=== PATIENT | female | born 1990 | race Caucasian/White ===

== ENCOUNTER 2018-07-31 14:15 | Emergency (ER) | payer OTHER ==
[~2018-07-31] VITALS: Ht 170.2 cm; Wt 88.5 kg
--- NOTE | 2018-07-31 15:22 | PHYS DOC ---
Past History Past Medical History: Other Past Surgical History: Other Alcohol Use: Occasionally Drug Use: None Adult General Chief Complaint Chief Complaint: Neck Pain HPI HPI Patient is a 28 year old female who presents with complaint of an enlarged lymph node along the left side of her neck. States that this has been present over the past 3 days. States it is mildly tender to palpation. Denies any fever. Has had sore throat but attributes that to mild seasonal allergies. States that she recently had breast screening including mammogram and ultrasound which was negative. This was done in May 2018. Has not taking medications for symptoms. The patient came to have this evaluated due to concern for the sudden enlargement of the lymph node. Review of Systems Review of Systems Constitutional: Denies fever or chills [] Eyes: Denies change in visual acuity, redness, or eye pain [] HENT: Denies nasal congestion or sore throat [] Respiratory: Denies cough or shortness of breath [] Cardiovascular: Denies chest pain or edema[] GI: Denies abdominal pain, nausea, vomiting, bloody stools or diarrhea [] : Denies dysuria or hematuria [] Musculoskeletal: Denies back pain or joint pain [] Integument: Denies rash or skin lesions [] Neurologic: Denies headache, focal weakness or sensory changes [] All other systems were reviewed and found to be within normal limits, except as documented in this note. Allergies Allergies No known drug allergies Physical Exam Physical Exam Constitutional: Well developed, well nourished, no acute distress, non-toxic appearance. [] HENT: Normocephalic, atraumatic, bilateral external ears normal, oropharynx moist, no oral exudates, nose normal. [] Eyes: PERRLA, EOMI, conjunctiva normal, no discharge. [] Neck: Normal range of motion, no tenderness, single posterior cervical lymph node along left side of neck mildly enlarged, freely mobile and rubbery to palpation, supple, no stridor. [] Cardiovascular:Heart rate regular rhythm, no murmur [] Lungs & Thorax: Bilateral breath sounds clear to auscultation [] Abdomen: Bowel sounds normal, soft, no tenderness, no masses, no pulsatile masses. [] Skin: Warm, dry, no erythema, no rash. [] Back: No tenderness, no CVA tenderness. [] Extremities: No tenderness, no cyanosis, no clubbing, ROM intact, no edema. [] Neurologic: Alert and oriented X 3, normal motor function, normal sensory function, no focal deficits noted. [] Current Patient Data Vital Signs Vital Signs Date Time Temp Pulse Resp B/P (MAP) Pulse Ox O2 Delivery O2 Flow Rate FiO2 07/31/18 14:36 98.9 91 18 100 Room Air Lab Results Rapid strep: Negative EKG EKG Not performed[] Radiology/Procedures Radiology/Procedures Not performed[] Course & Med Decision Making Course & Med Decision Making Pertinent Labs and Imaging studies reviewed. (See chart for details) Patient has a short duration of mildly enlarged lymph node along the left side of the neck. The patient's examination at this time is otherwise normal. Patient does not appear to have an emergency condition at this time. Rapid strep test was negative. Recommended use of ibuprofen and continued observation with recommended follow-up in the next 5-7 days with primary doctor for reevaluation. Advised return to emergency department for any worsening symptoms. Patient was understanding and in agreement with treatment plan.[] Dragon Disclaimer Dragon Disclaimer This electronic medical record was generated, in whole or in part, using a voice recognition dictation system. Departure Departure: Impression: Primary Impression: Enlarged lymph node in neck Disposition: 01 HOME, SELF-CARE Condition: STABLE Referrals: JUNACARLOS GARIBAY DO (PCP) Additional Instructions: Your examination today showed a mildly enlarged lymph node on the left side of your neck. Lymph nodes can be enlarged for multiple reasons in generally will go away with no specific treatment. It is important that she continue to monitor this area for any worsening swelling or pain. If you develop fevers, severe pain, difficulty breathing, or any other worsening symptoms, you should return immediately to the emergency department for evaluation. His recommended that he follow-up with your primary doctor in the next 5-7 days to have this reexamined. At that time if necessary, your doctor may order further tests. You may use ibuprofen 400 mg by mouth every 6 hours as needed for inflammation and discomfort. LOW TUCKER MD Jul 31, 2018 15:22
[2018-07-31 16:01] VITALS: BP 131/69
== END 2018-07-31 16:00 | disposition home or self-care (01) ==
LOC: ER 14:15
DX: R59.0 Localized enlarged lymph nodes (principal); J02.9 Acute pharyngitis, unspecified
CPT/HCPCS: 87070; 87880; 99283

== ENCOUNTER 2018-09-07 18:44 | Emergency (ER) | payer OTHER ==
[~2018-09-07] VITALS: Ht 170.2 cm; Wt 83.9 kg
[2018-09-07 18:55] VITALS: BP 157/76
[2018-09-07 20:19] LABS: BASO % 1 % (0-3); EOS # 0.1 x10^3/uL (0.0-0.7); EOS % 1 % (0-3); HEMATOCRIT 39.4 % (36.0-47.0); HEMOGLOBIN 13.3 g/dL (12.0-15.5); LYMPH # 1.4 x10^3/uL (1.0-4.8); LYMPH % 24 % (24-48); MEAN CORPUSCULAR HEMOGLOBIN 31 pg (25-35); MEAN CORPUSCULAR HGB CONC 34 g/dL (31-37); MEAN CORPUSCULAR VOLUME 93 fL (79-100); MONO # 0.7 x10^3/uL (0.0-1.1); MONO % 12 % (0-9); NEUT # 3.6 x10^3uL (1.8-7.7); NEUT % 62 % (31-73); PLATELET COUNT 227 x10^3/uL (140-400); RED BLOOD COUNT 4.26 x10^6/uL (3.50-5.40); RED CELL DISTRIBUTION WIDTH 13.8 % (11.5-14.5); WHITE BLOOD COUNT 5.7 x10^3/uL (4.0-11.0)
[2018-09-07] MEDS ORDERED: IOHEXOL 300 MG/ML 75 ML VIAL. IV ONE (20:30)
[2018-09-07 20:32] LABS: ALBUMIN/GLOBULIN RATIO 1.1 (1.0-1.7); CALCIUM 9.3 mg/dL (8.5-10.1); GFR 65.1; POTASSIUM 3.8 mmol/L (3.5-5.1); TOTAL BILIRUBIN 0.4 mg/dL (0.2-1.0); TOTAL PROTEIN 7.8 g/dL (6.4-8.2)
--- NOTE | 2018-09-07 21:23 | RAD ---
CT scan of the neck with contrast 09/07/2018 CLINICAL HISTORY: Dysphasia for one week. TECHNIQUE: After the intravenous administration of 72 cc of Omnipaque 300, contiguous, 0.625 mm axial sections were obtained through the neck. 3 mm reconstructed sagittal, axial and coronal images were obtained. One or more of the following individualized dose reduction techniques were utilized for this study: 1. Automated exposure control. 2. Adjustment of the mA and/or kV according to patient size. 3. Use of iterative reconstruction technique. FINDINGS: The mucosal structures of the nasopharynx, oral pharynx, hypopharynx and larynx are within normal limits. The parotid and submandibular glands are within normal limits. The thyroid gland is within normal limits. Prominent likely reactive cervical lymph nodes are seen throughout the neck. No abnormal soft tissue mass or fluid collection is seen. The osseous structures are grossly intact. IMPRESSION: No acute abnormality is seen. Electronically signed by: Alexis Adam MD (09/07/2018 9:20 PM) [facility]
--- NOTE | 2018-09-07 21:32 | PHYS DOC ---
Past History Past Medical History: Other Past Surgical History: Other Alcohol Use: Occasionally Drug Use: None Adult General Chief Complaint Chief Complaint: SORE THROAT HPI HPI Patient is a 28-year-old female who presents with complaint that she feels like her throat is swollen. She denies any sore throat or pain associated with it but states that it feels like she just has difficulty with swallowing. She states that symptoms started at night before she goes to bed and by the time she wakes up symptoms have for the most part resolved. She states that she was told to come into the emergency room for further evaluation because symptoms had recurred today. She denies any chest pain or shortness of breath. She also denies any nausea or vomiting.[] Review of Systems Review of Systems Constitutional: Denies fever or chills [] HENT: Denies nasal congestion or sore throat [] Respiratory: Denies cough or shortness of breath [] Cardiovascular: No additional information not addressed in HPI [] GI: Denies abdominal pain, nausea, vomiting or diarrhea [] Neurologic: Denies headache, focal weakness or sensory changes [] All other systems were reviewed and found to be within normal limits, except as documented in this note. Current Medications Current Medications Current Medications Medications (Trade) Dose Ordered Sig/Armond Start Time Stop Time Status Last Admin Dose Admin Iohexol (Omnipaque 300 Mg/ml) 75 ml 1X ONCE 09/07/18 20:30 09/07/18 20:31 DC 09/07/18 20:28 75 ML Allergies Allergies Allergies Coded Allergies Type Severity Reaction Last Updated Verified No Known Drug Allergies 09/07/18 No Physical Exam Physical Exam Constitutional: Well developed, well nourished, no acute distress, non-toxic appearance. [] HENT: Normocephalic, atraumatic, bilateral external ears normal, oropharynx moist, no oral exudates, nose normal. [] Eyes: PERRLA, EOMI, conjunctiva normal, no discharge. [] Neck: Normal range of motion, no tenderness, supple, no stridor. [] Cardiovascular:Heart rate regular rhythm, no murmur [] Lungs & Thorax: Bilateral breath sounds clear to auscultation [] Abdomen: Bowel sounds normal, soft. [] Skin: Warm, dry, no erythema, no rash. [] Extremities: No tenderness, no cyanosis, no clubbing, ROM intact, no edema. [] Neurologic: Alert and oriented X 3, no focal deficits noted. [] Current Patient Data Vital Signs Vital Signs Date Time Temp Pulse Resp B/P (MAP) Pulse Ox O2 Delivery O2 Flow Rate FiO2 09/07/18 18:55 98.3 83 18 96 Room Air Lab Results Laboratory Tests Test 09/07/18 19:25 09/07/18 20:00 Group A Streptococcus Rapid Negative (NEGATIVE) White Blood Count 5.7 x10^3/uL (4.0-11.0) Red Blood Count 4.26 x10^6/uL (3.50-5.40) Hemoglobin 13.3 g/dL (12.0-15.5) Hematocrit 39.4 % (36.0-47.0) Mean Corpuscular Volume 93 fL (79-100) Mean Corpuscular Hemoglobin 31 pg (25-35) Mean Corpuscular Hemoglobin Concent 34 g/dL (31-37) Red Cell Distribution Width 13.8 % (11.5-14.5) Platelet Count 227 x10^3/uL (140-400) Neutrophils (%) (Auto) 62 % (31-73) Lymphocytes (%) (Auto) 24 % (24-48) Monocytes (%) (Auto) 12 % (0-9) H Eosinophils (%) (Auto) 1 % (0-3) Basophils (%) (Auto) 1 % (0-3) Neutrophils # (Auto) 3.6 x10^3uL (1.8-7.7) Lymphocytes # (Auto) 1.4 x10^3/uL (1.0-4.8) Monocytes # (Auto) 0.7 x10^3/uL (0.0-1.1) Eosinophils # (Auto) 0.1 x10^3/uL (0.0-0.7) Basophils # (Auto) 0.0 x10^3/uL (0.0-0.2) Sodium Level 139 mmol/L (136-145) Potassium Level 3.8 mmol/L (3.5-5.1) Chloride Level 103 mmol/L (98-107) Carbon Dioxide Level 28 mmol/L (21-32) Anion Gap 8 (6-14) Blood Urea Nitrogen 12 mg/dL (7-20) Creatinine 1.0 mg/dL (0.6-1.0) Estimated GFR (Cockcroft-Gault) 65.1 BUN/Creatinine Ratio 12 (6-20) Glucose Level 103 mg/dL (70-99) H Calcium Level 9.3 mg/dL (8.5-10.1) Total Bilirubin 0.4 mg/dL (0.2-1.0) Aspartate Amino Transferase (AST) 19 U/L (15-37) Alanine Aminotransferase (ALT) 24 U/L (14-59) Alkaline Phosphatase 74 U/L (46-116) Total Protein 7.8 g/dL (6.4-8.2) Albumin 4.0 g/dL (3.4-5.0) Albumin/Globulin Ratio 1.1 (1.0-1.7) EKG EKG [] Radiology/Procedures Radiology/Procedures [] Impressions: PROCEDURE: CT SOFT TISSUE NECK W/CONTRAST CT scan of the neck with contrast 09/07/2018 CLINICAL HISTORY: Dysphasia for one week. TECHNIQUE: After the intravenous administration of 72 cc of Omnipaque 300, contiguous, 0.625 mm axial sections were obtained through the neck. 3 mm reconstructed sagittal, axial and coronal images were obtained. One or more of the following individualized dose reduction techniques were utilized for this study: 1. Automated exposure control. 2. Adjustment of the mA and/or kV according to patient size. 3. Use of iterative reconstruction technique. FINDINGS: The mucosal structures of the nasopharynx, oral pharynx, hypopharynx and larynx are within normal limits. The parotid and submandibular glands are within normal limits. The thyroid gland is within normal limits. Prominent likely reactive cervical lymph nodes are seen throughout the neck. No abnormal soft tissue mass or fluid collection is seen. The osseous structures are grossly intact. IMPRESSION: No acute abnormality is seen. Electronically signed by: Alexis Adam MD (09/07/2018 9:20 PM) [facility] Course & Med Decision Making Course & Med Decision Making Pertinent Labs and Imaging studies reviewed. (See chart for details) [] Dragon Disclaimer Dragon Disclaimer This electronic medical record was generated, in whole or in part, using a voice recognition dictation system. Departure Departure: Impression: Primary Impression: Globus sensation Disposition: 01 HOME, SELF-CARE Condition: STABLE Referrals: JUANCARLOS GARIBAY DO (PCP) Patient Instructions: Globus Syndrome ELIZABETH BAIRES Jr., DO September 07, 2018 21:32
--- NOTE | 2018-09-07 23:42 | RAD ---
AP and lateral soft tissue radiographs of the neck 09/07/2018 CLINICAL HISTORY: Dysphagia for one week. AP and lateral digital radiographs of the neck were obtained using soft tissue techniques. The epiglottis and aryepiglottic folds are within normal limits. No prevertebral soft tissue swelling is seen. The osseous structures are grossly intact. IMPRESSION: Negative study. Electronically signed by: Alexis Adam MD (09/07/2018 11:39 PM) [facility]
== END 2018-09-07 21:53 | disposition home or self-care (01) ==
LOC: ER 18:48
DX: F45.8 Other somatoform disorders (principal)
CPT/HCPCS: 36415; 70360; 70491; 80053; 85025; 87070; 87880; 99285; Q9967